=== PATIENT | female | born 1935 | race Caucasian/White ===

== ENCOUNTER → 2021-06-11 | Emergency (ER) | payer OTHER ==
[~2021-06-11] VITALS: Ht 157.5 cm; Wt 68.0 kg
[~2021-06-11] MED LIST: NORCO5 PO
--- NOTE | ~2021-06-11 | EMS ---
[address] [address] EMS Patient Care Report Name: HILDA SAEZ Room #: REG ADRIANO Mann#: [id number] Admission: 06/11/21 Attend Phys: Discharge: Date of : 39 Report #: [id number] THIS REPORT FOR: //name// Report Transmitted: 06/12/2021 00:03 EMS Care Summary [facility] Incident [id number] @ 06/11/2021 14:28 Incident Location [address] [place] [address] Patient HILDA SAEZ Female, 85 Years 1935 Patient Address [address] [place] [address] Patient History Hypertension (HTN),Chronic Pain, Patient Allergies No known allergies, Patient Medications Oxybutynin, Methotrexate, Prednisone, Gabapentin, Alendronate, Metoprolol, Chief Complaint right hip pain Disposition Transported No Lights/[place] Reason Falls Transported To [facility] Narrative At 14:28, [id number] was dispatched through the [facility] dispatcher to a C3 fall at [address] [facility] FD was also dispatched. [address] [address] EMS Patient Care Report Name: HILDA SAEZ Room #: ZOË Mann#: [id number] Admission: 06/11/21 Attend Phys: Discharge: Date of : 39 Report #: [id number] PT was an 85 yr old female who reported that she was walking into her apartment the previous day a little before noon, when she lost her balance and fell onto her right side. PT stated she did not hit her head or lose consciousness. PT stated that she was able to walk without much discomfort later that day, but today she was unable to bear weight on her right hip. PT tared her pain a 10/10 when trying to stand, but a 2/10 when seated. PT reported no other complaints. Assisted PT from her wheelchair to our cot without much discomfort. VS and ECG monitored during transport. Radio report to [facility] was on high volume, so PT was transferred to staff in triage. Initial Vitals @14:50P: 69,R: 16,BP: 158/63,GCS: 15,SpO2: 97,Revised Trauma: 12, @14:46P: 71,R: 16,BP: 137/67,Pain: 2/10,GCS: 15,Temp: 98.2F,Glucose: 150,SpO2: 91,Revised Trauma: 12, Assessments @15:15MENTAL:Person Oriented,Time Oriented,Place Oriented,Event Oriented,SKIN:HEENT:Eyes: Left Pupil: 4-mm,Eyes: Right Pupil: 4-mm,Head/Face: No Abnormalities,Neck/Airway: No Abnormalities,LUNG SOUNDS:ABDOMEN:PELVIS//GI:No Abnormalities,EXTREMITIES:Right Leg: SLIME,Left Arm: No Abnormalities,Right Arm: No Abnormalities,Left Leg: No Abnormalities,PULSE:NEURO:No Abnormalities, Impression Injury of Hip Procedures @14:37ALS AssessmentResponse: UnchangedSucceeded Timeline 14:24,Call Received 14:24,Psap Call 14:28,Dispatched 14:28,En Route 14:32,On Scene 14:36,At Patient 14:37,ALS Assessment,Response: UnchangedSucceeded, 14:46,BP: 137/67 M,PULSE: 71,RR: 16 R,SPO2: 91 Ox,ETCO2: ,B,PAIN: 2,GCS: 15, 14:48,Depart Scene 14:50,BP: 158/63 M,PULSE: 69,RR: 16 R,SPO2: 97 Ox,ETCO2: ,BG: ,PAIN: ,GCS: 15, 14:52,At Destination 15:23,Call Closed [facility] [address] [address] EMS Patient Care Report Name: TARA SAEZRIE Room #: REG Mackenzie#: [id number] Admission: 06/11/21 Attend Phys: Discharge: Date of : 39 Report #: [id number] Disclaimer [email or web address] Copyright 2020 [employer] This EMS Care Summary contains data elements from the applicable legal record (which may be displayed differently). It is designed to provide pertinent information for the following purposes: continuity of care, clinical quality, and state data reporting. The complete legal record is available to ED staff and administrators of the receiving hospital in [facility]'s Patient Tracker. All data is provided "as is."
[2021-06-11 18:44] VITALS: BP 161/79
== END ==
LOC: ER 15:00
DX: S70.01XA Contusion of right hip, initial encounter (principal); I10 Essential (primary) hypertension; Z98.890 Other specified postprocedural states; W01.0XXA Fall on same level from slipping, tripping and stumbling without subsequent striking against object, initial encounter; Y93.01 Activity, walking, marching and hiking; Y92.89 Other specified places as the place of occurrence of the external cause; Y99.8 Other external cause status